=== PATIENT | male | born 1985 | race African-American/Black ===

== ENCOUNTER 2018-04-30 09:06 | Emergency (ER) | payer SELFPAY ==
[2018-04-30 09:09] VITALS: BP 128/94; PULSE 88; RESP 20; TEMP 37.3; O2SAT 99; BMI 23.8
--- NOTE | 2018-04-30 09:19 | ED.VISSUMM ---
- ER Visit Summary Date of Service: 04/30/18 Chief Complaint: Dental pain for 1 week History of Present Illness: The patient is a 33 M who presents with severe dental pain today. Onset of pain 1 week ago. He denies fever, chills night sweats. He denies difficulty opening or closing his mouth completely. Cold drinks makes his pain worse. He has no history rheumatic fever, murmur, SBE, IV drug use to be immune suppressed. He has no medication allergies. He has not noted a rash. He states he does have a ride home. Physical Examination: Patient appears uncomfortable. Vital signs remarkable slight elevation blood pressure 120/94. There is facial swelling on the left side. He has a significant Sanjuanita with periapical abscess second left upper molar. There is no trismus. There is no evidence of facial cellulitis. Trach is midline. There is no cervical lymphadenopathy. There is no preauricular lymphadenopathy. There is no discomfort push on the tragus plan on the auricle. TMs are normal. Heart is regular without murmur, gallop or rub. S1 and S2 are normal. Lungs are clear to auscultation with good movement of air bilaterally. Test Results: None Emergency Department Course and Treatment: Since patient has a ride and has findings consistent with an abscess he was treated with 5 mg and Naprosyn, one [place] tablet and 500 mg of Pen-Vee K. He was given a prescription for Naprosyn, [place] and Pen-Vee K. Treatment Plan: Dental sheet for outpatient follow-up. Patient was informed that the medication will make the pain tolerable. He must see a dentist for definitive care. Disposition: Discharged to home Impression: 1. Odontalgia secondary to dental abscess This note was generated with [employer] dictation software. It may contain incorrect words, spelling, and punctuation that were not noted in review of the chart prior to signing ED Disposition - Plan for ED Patient: Disposition: Home or Assisted Living Chief Complaint: Dental Instructions: Dental Abscess Prescriptions: Hydrocodone Bitart/Apap 5-325 [[place] 5MG-325MG] 1 tablet PO Q6H PRN PRN 3 Days #10 tablet PRN Reason: Pain Naproxen [Naprosyn] 500 mg PO BID #14 tablet Penicillin V Potassium 500 mg PO 4X/DAY #40 tablet Referrals: Care Physician,No Primary [Primary Care Provider] - Chante Lizama [NON-STAFF] - 3-5 Days
--- NOTE | 2018-04-30 09:26 | ED.DCSUM_ITS ---
- ER Visit Summary Date of Service: 04/30/18 Chief Complaint: Dental pain for 1 week History of Present Illness: The patient is a 33 M who presents with severe dental pain today. Onset of pain 1 week ago. He denies fever, chills night sweats. He denies difficulty opening or closing his mouth completely. Cold drinks makes his pain worse. He has no history rheumatic fever, murmur, SBE, IV drug use to be immune suppressed. He has no medication allergies. He has not noted a rash. He states he does have a ride home. Physical Examination: Patient appears uncomfortable. Vital signs remarkable slight elevation blood pressure 120/94. There is facial swelling on the left side. He has a significant Sanjuanita with periapical abscess second left upper molar. There is no trismus. There is no evidence of facial cellulitis. Trach is midline. There is no cervical lymphadenopathy. There is no preauricular lymphadenopathy. There is no discomfort push on the tragus plan on the auricle. TMs are normal. Heart is regular without murmur, gallop or rub. S1 and S2 are normal. Lungs are clear to auscultation with good movement of air bilaterally. Test Results: None Emergency Department Course and Treatment: Since patient has a ride and has findings consistent with an abscess he was treated with 5 mg and Naprosyn, one [place] tablet and 500 mg of Pen-Vee K. He was given a prescription for Naprosyn , [place] and Pen-Vee K. Treatment Plan: Dental sheet for outpatient follow-up. Patient was informed that the medication will make the pain tolerable. He must see a dentist for definitive care. Disposition: Discharged to home Impression: 1. Odontalgia secondary to dental abscess This note was generated with [employer] dictation software. It may contain incorrect words, spelling, and punctuation that were not noted in review of the chart prior to signing ED Disposition - Plan for ED Patient: Disposition: Home or Assisted Living Chief Complaint: Dental Instructions: Dental Abscess Prescriptions: Hydrocodone Bitart/Apap 5-325 [[place] 5MG-325MG] 1 tablet PO Q6H PRN PRN 3 Days # 10 tablet PRN Reason: Pain Naproxen [Naprosyn] 500 mg PO BID #14 tablet Penicillin V Potassium 500 mg PO 4X/DAY #40 tablet Referrals: Care Physician,No Primary [Primary Care Provider] - Chante Lizama [NON-STAFF] - 3-5 Days
[2018-04-30] MEDS: Naproxen 250 MG Tablet 500 MG PO (09:31)
[2018-04-30] MEDS: HYDROcodone Bitartrate/Apap 5/325 Tablet PO (09:31)
[2018-04-30] MEDS: Penicillin Vk 250 MG Tablet 500 MG PO (09:32)
== END 2018-04-30 09:41 | disposition home or self-care (01) ==
LOC: ED 09:36
PROVIDERS: Emergency Provider Emergency Medicine
DX: K04.7 Periapical abscess without sinus (principal); K02.9 Dental caries, unspecified; Z72.0 Tobacco use
CPT/HCPCS: 99283